=== PATIENT | male | born 1985 | race African-American/Black ===

== ENCOUNTER 2022-10-12 12:14 | Emergency (ER) | payer BC, SELFPAY ==
[2022-10-12 12:23] VITALS: BP 142/92; PULSE 64; RESP 16; TEMP 36.8; O2SAT 100; BMI 24.2
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
[2022-10-12] MEDS: Acetaminophen 500 MG Tablet 1000 MG PO (13:32)
[2022-10-12] MEDS: Penicillin Vk 250 MG Tablet 500 MG PO (13:33)
== END 2022-10-12 13:36 | disposition home or self-care (01) ==
PROVIDERS: Emergency Provider Student in an Organized Health Care Education/Training Program; Visit Provider Student in an Organized Health Care Education/Training Program
DX: S02.5XXA Fracture of tooth (traumatic), initial encounter for closed fracture (principal); K02.9 Dental caries, unspecified; X58.XXXA Exposure to other specified factors, initial encounter
CPT/HCPCS: 99285

== ENCOUNTER 2023-06-28 14:53 | Emergency (ER) | payer BC, SELFPAY ==
[2023-06-28 14:54] VITALS: BP 155/93; PULSE 89; RESP 22; TEMP 36.6; O2SAT 98; BMI 26.2
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
--- NOTE | 2023-06-28 15:00 | ED.RN ---
Dr. Tellez at bedside for emergent intubation for concern for compromised airway
[2023-06-28] MEDS: Etomidate 20 MG/10 ML Vial IV (15:01)
[2023-06-28 15:02] VITALS: O2SAT 100
[2023-06-28] MEDS: Rocuronium Bromide 50 MG/5 ML Vial 100 MG IV (15:03)
--- NOTE | 2023-06-28 15:10 | ED.RN ---
NO OLD EKG
[2023-06-28 15:11] LABS: Absolute Lymphocyte Count 4.15 X10^3/uL (0.83-4.51); Absolute Neutrophil Count 1.9 X10^3/uL (2.0-7.7); Basophil# 0.02 X10^3/uL; Basophil% 0.3 % (0-1); Eosinophils% 4.3 % (0-5); Hematocrit 44.1 % (40-54); Lymphocyte # 4.15 X10^3/ul (0.83-4.51); Mean Corpuscular Hgb 32.3 pg (27.0-32.0); Mean Corpuscular Volume 94.8 fL (80-94); Monocyte# 0.52 X10^3/uL; Monocyte% 7.5 % (0-10); NRBC Flagged by Analyzer 0 % (0-5); Neutrophil # 1.91 X10^3/uL (2.7-7.7); Neutrophil % 27.6 % (47-70); Platelet Count 234 K/mm3 (150-450); RBC Distribution Width CV 12.8 % (11.6-14.6); RBC Distribution Width SD 44.1 fl (35.1-43.9); Red Blood Count 4.65 M/mm3 (4.6-6.2); White Blood Count 6.9 K/mm3 (4.4-11.0)
[2023-06-28 15:13] VITALS: BP 195/126; PULSE 94; RESP 18; O2SAT 100
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
--- NOTE | 2023-06-28 15:15 | ED.RN ---
1501 Time OUt performed at Bedside with Nursing staff and Dr. Tellez 1501 20 etomidate given PIV 1503 100 mg rocuronium given PIV 1503 163/107, hr 81, 99% spo2 1504 size 7.5 et tube measuring 25@ teeth. 1504 95% spo2, HR 101
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
[2023-06-28 15:20] LABS: International Normalized Ratio 0.9; Prothrombin Time (Protime)PT. 12.4 SECONDS (11.7-14.9)
[2023-06-28] MEDS: fentaNYL drip 100 ML 5 MCG CONT INF (15:20)
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
[2023-06-28 15:21] LABS: Partial Thromboplast Time 27.1 Seconds (24.1-36.2)
[2023-06-28 15:30] LABS: Anion Gap 4 (5-15); BUN 10 mg/dL (7-18); BUN/Creat Ratio 9.1 RATIO (10-20); Calcium,Total 8.7 mg/dL (8.5-10.1); Chloride 112 mmol/L (98-107); EST Glomerular Filtration Rate 79 mL/min (>60); Est Glom Filt Rate - Afr Amer 95 mL/min (>60); Estimated Creatinine Clearance 100.88 ml/min; Glucose 122 mg/dL (74-106); Potassium 3.6 mmol/L (3.5-5.1); Sodium Level 140 mmol/L (136-145)
[2023-06-28] MEDS: Diphth,Pertuss(Acell),Tet Vac 0.5 ML Vial IM (15:35)
[2023-06-28] MEDS: Cefazolin 2 GM in 0.9% Normal Saline (100mL Bag) 100 ML IV (15:35)
[2023-06-28] MEDS: fentaNYL 100 MCG/2 ML Ampul IV (15:36)
[2023-06-28 15:38] VITALS: BP 185/107; PULSE 103; RESP 20; TEMP 36.4; O2SAT 98
[2023-06-28 15:38] LABS: CPK Total, Creatine Kinase 334 U/L (39-308)
[2023-06-28 15:44] LABS: Amphetamine Urine VISTA NEGATIVE (<1000 ng/mL); Barbiturate Urine VISTA NEGATIVE (< 200 ng/mL); Benzodiazepine Urine VISTA NEGATIVE (< 200 ng/mL); Cocaine Urine VISTA NEGATIVE (< 300 ng/mL); Ecstacy Urine VISTA NEGATIVE (< 500 ng/mL); Methadone Urine VISTA NEGATIVE (< 300 ng/mL); PCP Urine VISTA NEGATIVE (< 25 ng/mL); THC Urine VISTA POSITIVE (< 50 ng/mL); Vista UDS pH Range 5
--- NOTE | 2023-06-28 15:45 | ED.RN ---
This RN called report to [facility] ER
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
[2023-06-28 15:47] LABS: Triglycerides 95 mg/dL
== END 2023-06-28 15:57 | disposition short-term general hospital (02) ==
PROVIDERS: Emergency Medicine; Emergency Provider Emergency Medicine; Visit Provider Emergency Medicine
DX: S02.609A Fracture of mandible, unspecified, initial encounter for closed fracture (principal); W34.00XA Accidental discharge from unspecified firearms or gun, initial encounter; S01.84XA Puncture wound with foreign body of other part of head, initial encounter; Z23 Encounter for immunization
CPT/HCPCS: 31500; 51702; 70450; 70486; 70496; 70498; 71045; 72125; 80048; 80307; 80320; 82550; 84478; 85025; 85610; 85730; 90471; 96365; 96368; 96375; 99252; 99285; Q9967; A4216; G0463; G0480